=== PATIENT | female | born 1950 | race Caucasian/White ===

== ENCOUNTER 2017-05-18 04:29 | Emergency (ER) | payer BC ==
[~2017-05-18] VITALS: Ht 160 cm; Wt 74.8 kg
[2017-05-18 04:31] VITALS: Ht 160 cm; Wt 74.8 kg
[2017-05-18 06:18] LABS: PLATELET COUNT 337 x10^3mcL (130-400); RED CELL DISTRIBUTION WIDTH 12.6 % (11.5-14.5)
[2017-05-18 06:19] LABS: BASOPHIL % 2.2 % (0-2)
[2017-05-18 06:34] LABS: CALCIUM 8.8 mg/dL (8.5-10.1); CARBON DIOXIDE 25.9 mmol/L (21-32); CHLORIDE SERUM 108 mmol/L (98-107); CREATININE SERUM 0.9 mg/dL (0.6-1.0); GFR1 > 60 mL/min; GLUCOSE SERUM 101 mg/dL (74-106); POTASSIUM SERUM 4.3 mmol/L (3.5-5.1); SODIUM SERUM 142 mmol/L (136-145)
[2017-05-18 06:39] LABS: ALKALINE PHOSPHATASE 95 U/L (46-116); ALT/SGPT 22 U/L (14-59); AST/SGOT 20 U/L (15-37); BILIRUBIN TOTAL 0.32 mg/dL (0.20-1.00); LIPASE 138 IU/L (73-393); TOTAL PROTEIN, SERUM 7.1 g/dL (6.4-8.2)
[2017-05-18 06:41] LABS: ALBUMIN 3.3 g/dL (3.4-5.0)
[2017-05-18 07:28] LABS: microscopic required? NO
[2017-05-18 09:11] LABS: UA SPECIFIC GRAVITY >=1.030 (1.005-1.035); urine erythrocyte NEGATIVE (NEGATIVE)
[2017-05-18 09:40] VITALS: BP 126/81
== END 2017-05-18 09:47 | disposition home or self-care (01) ==
LOC: ED 04:29
PROVIDERS: Emergency Medicine
DX: R10.9 Unspecified abdominal pain (principal); M54.9 Dorsalgia, unspecified; I10 Essential (primary) hypertension; K21.9 Gastro-esophageal reflux disease without esophagitis; E78.5 Hyperlipidemia, unspecified
CPT/HCPCS: 36415